=== PATIENT | male | born 1975 | race Hispanic/Latino ===

== ENCOUNTER 2017-01-19 15:56 | Emergency (ER) | payer BC ==
[~2017-01-19] VITALS: Ht 152.4 cm; Wt 67.1 kg
--- NOTE | 2017-01-19 16:08 | NUR ---
ARRIVAL PT ARRIVED AMBULATORY TO ER 4 C/O HIGH BLOOD SUGAR. PT STATES HAD PRE-OP LABS DONE TODAY FOR PROCEDURE WITH DR WASHINGTON NEXT WEEK AND WAS CALLED AND TOLD TO COME TO ER BECAUSE OF BLOOD SUGAR. EDP NOTIFIED OF PT ARRIVAL. NO ACUTE DISTRESS NOTED.
--- NOTE | 2017-01-19 16:17 | NUR ---
BLOOD GLUCOSE PT BLOOD GLUCOSE 405MG/DL. EDP NOTIFIED.
[2017-01-19] MEDS ORDERED: NOVOLIN R SUBCUT STA (16:34)
--- NOTE | 2017-01-19 16:34 | ER.PDOC ---
General Chief Complaint: General Complaint Stated Complaint: HIGH BLOOD SUGAR,INCIDENTAL FINDING ON ROUTINE LABS TRAVEL OUT OF US: No Time seen by MD: 16:22 Source: patient History of Present Illness Timing/Duration: unsure Allergies: Coded Allergies: No Known Allergies (Unverified , 01/19/17) Home Meds Reported Medications Lisinopril 20 Mg Tablet1 Tab PO DAILY #30 TAB Ref 5 01/19/17 Clindamycin Hcl 150 Mg Capsule1 Cap PO QID #28 CAP 01/19/17 Acetaminophen With Codeine (Tylenol With Codeine #3 Tablet)1 Each Tablet1 Tab PO Q4 PRN PAIN #30 TAB 01/19/17 Past Medical History Medical History: hypertension Surgical History: no surgical history Family History Significant Family History: diabetes Social History Smoking: non-smoker Alcohol Use: occasionally Drug Use: none Review of Systems Genitourinary: other ([place]) All Other Systems: Reviewed and Negative Physical Exam General Appearance: No Apparent Distress EENT: eyes nml inspection Neck: Non-Tender Respiratory: chest non-tender CVS: reg rate & rhythm Gastrointestinal: Normal Bowel Sounds Back: Normal Inspection Extremities: Normal Range of Motion 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
[2017-01-19] MEDS ORDERED: NOVOLIN R ONE (16:44)
--- NOTE | 2017-01-19 17:20 | NUR ---
BLOOD GLUCOSE PT BLOOD GLUCOSE 304MG/DL AT THIS TIME.
[2017-01-19 17:26] VITALS: BP 141/96
== END 2017-01-19 17:20 | disposition home or self-care (01) ==
LOC: ER 15:56
DX: R73.9 Hyperglycemia, unspecified (principal); I10 Essential (primary) hypertension; R35.8 Other polyuria
CPT/HCPCS: 82948 ×2; 96372; 99283; J1815

== ENCOUNTER → 2017-01-19 | Outpatient (CLI) | payer BC ==
[~2017-01-19] VITALS: Ht 152.4 cm; Wt 66.2 kg
[~2017-01-19] MED LIST: ACET-685 PO; LISI-410 PO; [UNRECOGNIZED DRUG - CODE] PO
[2017-01-19 11:46] VITALS: BP 142/99
[2017-01-19 12:21] LABS: BASOPHIL % 0.5 % (0.0-0.2); EOSINOPHIL # 0.2 10^3/uL (0.0-0.2); EOSINOPHIL % 2.2 % (0.0-5.0); HEMATOCRIT 46.2 % (37.0-53.0); HEMOGLOBIN 16.1 g/dL (13.9-16.3); LYMPHOCYTES # 1.8 10^3/uL (1.0-4.8); LYMPHOCYTES % 23.3 % (24.0-44.0); MEAN CELL HGB CONCENTRATION 34.8 g/dL (33-37); MEAN CORP VOLUME 83.2 fL (78-100); MEAN PLATELET VOLUME 11.9 fL (7.8-11.0); MONOCYTES # 0.4 10^3/uL (0.3-0.8); MONOCYTES % 5.3 % (5.0-12.0); NEUTROPHIL # 5.3 10^3/uL (1.8-7.7); NEUTROPHILS % 68.2 % (41.0-85.0); RED CELL DISTRIBUTION WIDTH 12.6 % (11.5-14.5); WHITE BLOOD CELL 7.7 10^3/uL (4.5-11.0)
[2017-01-19 13:52] LABS: CALCIUM 8.4 mg/dL (8.4-10.5); CARBON DIOXIDE 18.1 mmol/L (20.0-32)
== END | disposition home or self-care (01) ==
LOC: LAB 08:00 → EDSTATUS 01-24 10:30
PROVIDERS: ATTEND Urology
DX: I10 Essential (primary) hypertension (principal)
CPT/HCPCS: 36415; 80048; 83036; 85025; 85610; 85730; 93005